=== PATIENT | female | born 1995 | race American Indian/Alaskan Native ===

== ENCOUNTER 2019-02-14 12:11 | Emergency (ER) | payer MEDICAID, OTHER ==
[2019-02-14 12:14] VITALS: BMI 29.2
[2019-02-14 12:26] VITALS: TEMP 98
[2019-02-14] MEDS ORDERED: Sodium Chloride 0.9% 1,000 ML IV STA ×2 (12:30→15:08)
[2019-02-14] MEDS ORDERED: Albuterol-Ipratrop 3 mg / 0.5 (3 ml) UD IH STA (12:45)
[2019-02-14 13:44] LABS: INFLUENZA A B NEGATIVE FOR FLU A/B (NEGATIVE)
[2019-02-14 14:56] VITALS: RESP 17
--- NOTE | 2019-02-14 15:28 | RAD ---
Date of service: 02/14/2019 HISTORY: productive cough, r/o infiltrate COMPARISON: No prior. TECHNIQUE: Chest PA and lateral views FINDINGS: LUNGS: No active pulmonary disease. PLEURA: No significant pleural effusion identified. No pneumothorax apparent. CARDIOVASCULAR: No aortic atherosclerotic calcification present. Normal cardiac size. No pulmonary vascular congestion. OSSEOUS STRUCTURES: No significant abnormalities. VISUALIZED UPPER ABDOMEN: Normal. OTHER FINDINGS: None. IMPRESSION: No active disease.
--- NOTE | 2019-02-14 15:42 | ED PDOC ---
Arrival/HPI - General Chief Complaint: Cough, Cold, Congestion Time Seen by Provider: 02/14/19 12:12 Historian: Patient - History of Present Illness Narrative History of Present Illness (Text): 02/14/19 15:36 24 y/o homeless female with PMH of seizure disorder (on keppra) and asthma presents to the ED c/o cough and congestion x 1 day. Associated sore throat and rhinorrhea. Cough is productive of yellow sputum. No recent travel or sick contacts. Last seizure 2 weeks ago, states she takes her Keppra as prescribed. Denies fever, chills, nausea, vomiting, urinary symptoms, abdominal pain, back pain, chest pain, SOB, ear pain, diarrhea, syncope, dizziness, vision changes, seizure, headache, or any other associated symptoms. Past Medical History - Provider Review Nursing Documentation Reviewed: Yes - Infectious Disease Hx of Infectious Diseases: None - Reproductive Menopause: No - Psychiatric Hx Substance Use: No - Surgical History Hx Vascular Access Device: No - Anesthesia Hx Anesthesia: No Family/Social History - Physician Review Nursing Documentation Reviewed: Yes Family/Social History: No Known Family HX Smoking Status: Current Some Days Smoker Hx Alcohol Use: No Hx Substance Use: No Allergies/Home Meds Allergies/Adverse Reactions: Allergies pollen extracts Allergy (Verified 02/14/19 12:15) RASH shrimp Allergy (Verified 02/14/19 12:15) SWELLING Review of Systems - Review of Systems Constitutional: Normal. absent: Fatigue, Fevers Eyes: Normal. absent: Vision Changes, Eye Pain ENT: Sore Throat, Rhinorrhea, Sinus Congestion. absent: Epistaxis Respiratory: Cough, Sputum. absent: SOB Cardiovascular: Normal. absent: Chest Pain, Palpitations, Syncope Gastrointestinal: Normal. absent: Abdominal Pain, Nausea, Vomiting Genitourinary Female: Normal. absent: Dysuria, Frequency Musculoskeletal: Normal. absent: Back Pain, Neck Pain Skin: Normal. absent: Rash Neurological: Normal. absent: Headache, Dizziness, Focal Weakness Physical Exam Vital Signs Reviewed: Yes Vital Signs Temp Pulse Resp BP Pulse Ox 02/14/19 14:55 65 17 88/44 L 100 02/14/19 12:12 98 F 78 18 88/41 L 100 Temperature: Afebrile Blood Pressure: Hypotensive Pulse: Regular Respiratory Rate: Normal Appearance: Positive for: Well-Appearing, Non-Toxic, Comfortable, Unkept Pain Distress: None Mental Status: Positive for: Alert and Oriented X 3 - Systems Exam Head: Present: Atraumatic, Normocephalic Pupils: Present: PERRL Extroacular Muscles: Present: EOMI Conjunctiva: Present: Normal Mouth: Present: Moist Mucous Membranes Neck: Present: Normal Range of Motion. No: Meningeal Signs Respiratory/Chest: Present: Clear to Auscultation, Good Air Exchange. No: Respiratory Distress, Accessory Muscle Use, Wheezes, Retracting, Rhonchi, Tachypneic Cardiovascular: Present: Regular Rate and Rhythm, Normal S1, S2, Peripheal Pulses Present Abdomen: No: Tenderness Upper Extremity: Present: Normal Inspection, Normal ROM, NORMAL PULSES, Neurovascularly Intact, Capillary Refill < 2s. No: Temperature Abnormalties Lower Extremity: Present: Normal ROM. No: Edema Neurological: Present: GCS=15, Speech Normal, Motor Func Grossly Intact, Normal Sensory Function, Gait Normal Skin: Present: Warm, Dry, Normal Color. No: Rashes Psychiatric: Present: Alert, Oriented x 3, Normal Insight, Normal Concentration, Normal Affect, Normal Mood Medical Decision Making ED Course and Treatment: Initial Plan: * Rapid flu * Rapid strep * CXR * Duoneb * IVF 16:15 CXR unremarkable, no pneumonia. No wheezing on exam. No tachypnea. O2 sat normal. Pt speaks in full sentences without difficulty, no retractions. Patient reports improvement in symptoms with medication. Advised PMD followup. BP has improved with fluids. Diagnostic testing results and plan of care discussed with patient. Strict instructions given regarding prescription use, importance of followup, and signs/symptoms to return to ER including fever, chills, abdominal pain, chest pain, or any other new/worsening symptoms. Pt verbalized understanding of disc ussion. Patient is A&Ox3, ambulating with steady gait, with vital signs stable for discharge. - Lab Interpretations Lab Results: Lab Results 02/14/19 13:00: Influenza Typ A,B (EIA) Negative for flu a/b, Grp A Beta Strep Ag Negative I have reviewed the lab results: Yes - RAD Interpretation Narrative RAD Interpretations (Text): CXR: FINDINGS: LUNGS: No active pulmonary disease. PLEURA: No significant pleural effusion identified. No pneumothorax apparent. CARDIOVASCULAR: No aortic atherosclerotic calcification present. Normal cardiac size. No pulmonary vascular congestion. OSSEOUS STRUCTURES: No significant abnormalities. VISUALIZED UPPER ABDOMEN: Normal. OTHER FINDINGS: None. IMPRESSION: No active disease. 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 - Medication Orders Current Medication Orders: Sodium Chloride (Sodium Chloride 0.9%) 1,000 mls @ 999 mls/hr IV .Q1H1M STA Stop: 02/14/19 16:08 Last Admin: 02/14/19 15:26 Dose: 999 mls/hr eMAR Start Stop Document 02/14/19 15:26 CD (Rec: 02/14/19 15:27 CD [place] [id number]) Intravenous Solution Start Date 02/14/19 Start Time 15:26 End Date 02/14/19 End time 16:27 Total Infusion Time 61 Discontinued Medications Albuterol/Ipratropium (Duoneb 3 Mg/0.5 Mg (3 Ml) Ud) 3 ml IH STAT STA Stop: 02/14/19 12:46 Last Admin: 02/14/19 12:56 Dose: 3 ml Sodium Chloride (Sodium Chloride 0.9%) 1,000 mls @ 999 mls/hr IV .Q1H1M STA Stop: 02/14/19 13:30 Last Admin: 02/14/19 12:55 Dose: 999 mls/hr eMAR Start Stop Document 02/14/19 12:55 CD (Rec: 02/14/19 12:56 CD [place] [id number]) Intravenous Solution Start Date 02/14/19 Start Time 12:56 End Date 02/14/19 End time 13:57 Total Infusion Time 61 Disposition/Present on Arrival - Present on Arrival Any Indicators Present on Arrival: No History of DVT/PE: No History of Uncontrolled Diabetes: No Urinary Catheter: No History of Decub. Ulcer: No History Surgical Site Infection Following: None - Disposition Have Diagnosis and Disposition been Completed?: Yes Diagnosis: Viral upper respiratory infection Disposition: HOME/ ROUTINE Disposition Time: 16:05 Condition: IMPROVED Discharge Instructions (ExitCare): Viral Upper Respiratory Infection, Adult (DC) Additional Instructions: Albuterol inhaler every 6 hours as needed Medrol dose pack as instructed Increase fluids Rest, no strenuous activity Followup with primary doctor within 2 days Return to ER with any new/worsening symptoms Prescriptions: Albuterol Sulfate [Ventolin Hfa] 2 puff IH Q6 #1 pump Methylprednisolone [Medrol Dose Pack (21 tabs)] 4 mg PO DAILY #21 mg Referrals: Sonia Rivera MD [Medical Doctor] - Follow up with primary [facility] [place] [Outside] - Follow up with primary Forms: [employer] (Malay), WORK NOTE
[2019-02-14 16:05] VITALS: BP 111/64; PULSE 61; O2SAT 99
== END 2019-02-14 16:18 | disposition home or self-care (01) ==
LOC: ED 12:11
DX: J06.9 Acute upper respiratory infection, unspecified (principal); G40.909 Epilepsy, unspecified, not intractable, without status epilepticus; Z59.0 Homelessness
CPT/HCPCS: 71046; 81025; 87070; 87430; 87804; 96360; 96361; 99284; J7030